=== PATIENT | female | born 1935 | race Caucasian/White ===

== ENCOUNTER 2020-07-16 11:38 | Emergency (ER) | payer MEDICARE, OTHER, SELFPAY ==
[2020-07-16 12:12] VITALS: BP 121/93; PULSE 86; RESP 18; TEMP 36.5; O2SAT 98
[2020-07-16 12:28] LABS: Basophils Absolute Auto 0.1 K/mm3 (0.0-0.1); Basophils Percent Auto 0.9 % (0.2-1.2); Eosinophils Absolute Auto 0.4 K/mm3 (0-0.3); Eosinophils Percent Auto 4.8 % (0-4.4); Hematocrit 35.4 % (37.0-47.0); Immature Granulocyte Absolute 0.02 K/mm3 (0.00-0.031); Immature Granulocyte Percent A 0.2 % (0-0.5); Lymphocytes Absolute Auto 2.06 K/mm3 (0.9-3.2); Lymphocytes Percent Auto 22.9 % (18.3-44.2); Mean Corpuscular HGB Conc 31.1 g/dl (32-36); Mean Corpuscular Hemoglobin 31.1 pg (26-34); Monocytes Absolute Auto 0.9 K/mm3 (0.1-0.6); Monocytes Percent Auto 9.7 % (2.6-8.5); Neutrophils Absolute Auto 5.5 K/mm3 (1.3-6.7); Neutrophils Percent Auto 61.5 % (45.5-73.1); Platelet Count Result 283 k/mm3 (150-375); Red Blood Count 3.54 M/mm3 (4.2-5.4); Red Cell Distribution Width 12.4 % (11.5-14.5)
[2020-07-16 12:40] LABS: Alanine Aminotransferase 13 U/L (4-35); Albumin Level 3.8 g/dL (3.5-5.1); Alkaline Phosphatase 68 U/L (38-126); Anion Gap 4 mmol/L (8-16); Aspartate Amino Transferase 21 U/L (14-36); Bilirubin,Total 0.4 mg/dL (0.2-1.3); Blood Urea Nitrogen 37 mg/dL (7-17); Calcium 8.8 mg/dL (8.4-10.2); Carbon Dioxide 28 mmol/L (22-30); Chloride 106 mmol/L (98-107); Estimated CRCL calculation 33 ml/min; Estimated Glomerular Filt Rate 43; Glucose 93 mg/dL (65-105); Potassium 5.5 mmol/L (3.4-5.0); Sodium 138 mmol/L (137-145)
[2020-07-16 12:48] LABS: Prothrombin Time 13.4 Seconds (11.1-14.7)
[2020-07-16 12:49] LABS: Partial Thromboplastin Time 26.9 SECONDS (22.3-36.8)
[2020-07-16 13:47] VITALS: BP 125/61; PULSE 84
[2020-07-16 13:49] VITALS: BP 117/57; PULSE 84
[2020-07-16 13:50] VITALS: BP 109/61; PULSE 80
[2020-07-16 14:59] VITALS: BP 125/65; PULSE 72; RESP 16; O2SAT 97
--- NOTE | 2020-07-16 15:06 | ED.GENADULT ---
HPI - General Adult General Chief complaint: GI Bleed Stated complaint: dark stools Time Seen by Provider: 07/16/20 13:15 Source: patient, family and old records reviewed Mode of arrival: ambulatory Limitations: no limitations History of Present Illness HPI narrative: Patient is an 84-year-old female who presents to emergency department for evaluation of dark stools 3 days ago patient was presenting with concern of possible GI bleeding patient has not taken anything for her symptoms patient denies similar occurrence in the past patient lives at home with herself and presents with family who helps care for the patient frequently patient denies nausea vomiting pain or other complaints and on arrival is resting comfortably in the room in no distress Related Data Allergies Allergy/AdvReac Type Severity Reaction Status Date / Time No Known Allergies Allergy Mild Verified 07/16/20 12:14 Review of Systems Review of Systems: All systems reviewed & are unremarkable except as noted in HPI and below PMFSH Social History Social History (Updated 07/16/20 @ 15:07 by Henrik Vega PA-C) Smoking status: Never smoker Exam Narrative: Exam Narrative: GENERAL: Well-appearing, well-nourished, and in no acute distress. HEAD: Normocephalic, atraumatic. EYES: PERRLA and EOMI. ENT: Nares clear, no rhinorrhea or epistaxis. Mucous membranes moist. CHEST: Clear to auscultation. No respiratory distress. No wheezes rales or rhonchi HEART: Regular rate and rhythm. No murmur heard. Normal peripheral pulses. ABDOMEN: Soft, nontender, nondistended, guaiac negative exam EXTREMITIES: Normal range of motion. No edema. SKIN: Warm, dry, no rash. NEURO: No focal deficits. Alert and oriented x3. Cranial nerves II through XII grossly intact PSYCH: Normal mood and affect. Course Course Emergency Course: Patient is an 84-year-old female who presents to emergency department for evaluation of dark stools patient has no pain no other complaints nontender abdominal exam hemodynamically stable ABCs intact and stable felt appropriate for outpatient reevaluation will be referred back to primary care as well as gastroenterology for further evaluation of her symptoms Vital Signs Vital signs: Vital Signs Temperature 97.7 F 07/16/20 12:12 Pulse Rate 86 07/16/20 12:12 Respiratory Rate 18 07/16/20 12:12 Blood Pressure 121/93 H 07/16/20 12:12 Pulse Oximetry 98 07/16/20 12:12 Temperature 97.7 F 07/16/20 12:12 Pulse Rate 72 07/16/20 14:59 Respiratory Rate 16 07/16/20 14:59 Blood Pressure 125/65 07/16/20 14:59 Pulse Oximetry 97 07/16/20 14:59 Medical Decision Making MDM Narrative Medical decision making narrative: Patient evaluated for dark stools and guaiac negative hemodynamically stable no distress felt appropriate for outpatient reevaluation patient and family agree with this plan Vital Signs Vital Signs: Vital Signs Temperature 97.7 F 07/16/20 12:12 Pulse Rate 86 07/16/20 12:12 Respiratory Rate 18 07/16/20 12:12 Blood Pressure 121/93 H 07/16/20 12:12 Pulse Oximetry 98 07/16/20 12:12 Temperature 97.7 F 07/16/20 12:12 Pulse Rate 72 07/16/20 14:59 Respiratory Rate 16 07/16/20 14:59 Blood Pressure 125/65 07/16/20 14:59 Pulse Oximetry 97 07/16/20 14:59 Lab Data Result diagrams: 07/16/20 12:16 07/16/20 12:16 Labs: Lab Results 07/16/20 07/16/20 07/16/20 Range/Units 12:16 12:16 12:16 WBC 9.0 (4.5-10.0) K/mm3 RBC 3.54 L (4.2-5.4) M/mm3 Hgb 11.0 L (12.0-15.0) g/dL Hct 35.4 L (37.0-47.0) % MCV 100.0 (80-100) fl MCH 31.1 (26-34) pg MCHC 31.1 L (32-36) g/dl RDW 12.4 (11.5-14.5) % Plt Count 283 (150-375) k/mm3 MPV 10.0 (7.4-10.4) fl Immature Gran % (Auto) 0.2 (0-0.5) % Neut % (Auto) 61.5 (45.5-73.1) % Lymph % (Auto) 22.9 (18.3-44.2) % Harmon % (Auto) 9.7 H (2.6-8.5) % Eos % (Auto) 4.
[2020-07-16 15:45] VITALS: BP 131/68; PULSE 77; RESP 16; O2SAT 100
== END 2020-07-16 15:47 | disposition home or self-care (01) ==
PROVIDERS: Emergency Provider Emergency Medicine; PCP Nurse Practitioner Adult Health
DX: R19.5 Other fecal abnormalities (principal)
CPT/HCPCS: 36415; 80053; 85025; 85610; 85730; 86850; 86900; 86901; 99283

== ENCOUNTER 2022-02-09 10:55 | Inpatient (IN) | payer MEDICARE, OTHER, SELFPAY ==
[2022-02-09] VITALS (24 sets, daily range): BP systolic 119–188; BP diastolic 47–170; PULSE 72–86; RESP 16–18; TEMP 36.4–37.1; O2SAT 80–100; BMI 31.8
--- NOTE | ~2022-02-09 | XR_ITS ---
EXAMINATION: XR tibia fibula RT 2V DATE: 02/09/2022 13:12 INDICATION: Right lower leg pain. TECHNIQUE: 2 views of right tibia and fibula on 3 radiographs were obtained. COMPARISON: Right knee radiographs 02/01/2017 FINDINGS: There is a total right knee arthroplasty in near-anatomic alignment. There are old healed f ractures of distal tibia and fibula with a screw in medial malleolus and plate and screws in the dist al fibula. There is a fracture deformity of right calcaneus. There is mild midfoot osteoarthritis. IMPRESSION: 1. Fracture deformity of right calcaneus, likely chronic. 2. Total right knee arthroplasty in near-anatomic alignment. Reviewed, dictated and finalized at location A.
--- NOTE | ~2022-02-09 | XR_ITS ---
EXAMINATION: XR foot RT min 3V DATE: 02/11/2022 10:07 INDICATION: Calcaneus fracture. TECHNIQUE: 4 views of right foot were obtained. COMPARISON: Right tibia and fibula radiographs 02/09/2022, right foot radiographs 10/29/2004 FINDINGS: There is a joint depression fracture deformity of calcaneus. There is internal fixation of medial malleolus with 2 lag screws. There is internal fixation of distal fibula with plate and multip le screws. There is moderate osteoarthritis of talonavicular joint and calcaneocuboid joint. There is mild osteoarthritis of some of the interphalangeal joints and midfoot joints. IMPRESSION: 1. Joint depression fracture deformity of calcaneus, likely chronic. 2. Polyarticular osteoarthritis. Reviewed, dictated and finalized at location A.
--- NOTE | ~2022-02-09 | CT_ITS ---
EXAMINATION:CT diagnostic chest wo con DATE: 02/11/2022 10:14 INDICATION: COVID-19 pneumonia. TECHNIQUE: Computed tomography (CT) of the chest was performed without intravenous contrast. Automate d exposure control and iterative reconstruction technique were employed. The dose-length product (DLP ) was 192.32 mGy-cm. COMPARISON: Chest single view 02/09/2022 FINDINGS: The lungs demonstrate widespread septal thickening with a peripheral predominance. There is mild bronchiectasis in right middle lobe. There are small airspace opacities in right upper lobe. Ca lcified right lung nodules and right hilar and mediastinal lymph nodes are consistent with old granul omatous disease. There are airspace and groundglass opacities in superior segment left lower lobe. No pleural effusion. There is left atrial enlargement of the heart. No pericardial effusion. Epidural e lectrodes are noted. IMPRESSION: 1. Airspace and groundglass opacities in superior segment left lower lobe, consistent with pneumonia. Follow-up radiographs are recommended to exclude malignancy. 2. Diffuse lung disease, likely chronic interstitial lung disease in a pattern of nonspecific interst itial pneumonia (NSIP). Reviewed, dictated and finalized at location A. IMPRESSION: 1. Airspace and groundglass opacities in superior segment left lower lobe, cons istent with pneumonia. Follow-up radiographs are recommended to exclude maligna ncy. 2. Diffuse lung disease, likely chronic interstitial lung disease in a pattern of nonspecific interstitial pneumonia (NSIP).
--- NOTE | ~2022-02-09 | CT_ITS ---
EXAMINATION: CT lumbar spine w con DATE: 02/09/2022 13:21 INDICATION: Back pain. TECHNIQUE: Computed tomography (CT) of the lumbar spine was performed with 100 mL Omnipaque 350 intra venous contrast. Automated exposure control and iterative reconstruction technique were employed. The dose-length product was 1085.42 mGy-cm. COMPARISON: None FINDINGS: There are changes of cholecystectomy. There is cortical thinning of left kidney. There is a 3.2 cm cyst in left ovary. There is 3 degrees levocurvature of lumbar spine. There is 3 mm anterolis thesis of L3 on L4 and L5 on S1. Vertebral body heights are normal. There is mildly decreased disc he ight at L2-L3 and L3-L4. There are epidural electrodes in thoracic spine. The following disc levels a re specifically discussed: L1-L2: The disc does not extend beyond the endplate margin. There is severe right and moderate left f acet joint osteoarthritis. There is mild bilateral neural foraminal stenosis. There is no central can al stenosis. L2-L3: The disc is bulging. There is severe bilateral facet joint osteoarthritis. There is moderate b ilateral neural foraminal stenosis. There is moderate central canal stenosis. L3-L4: The disc is bulging. There is severe bilateral facet joint osteoarthritis. There is moderate b ilateral neural foraminal stenosis. There is severe central canal stenosis. L4-L5: The disc is bulging. There is severe bilateral facet joint osteoarthritis. There is moderate b ilateral neural foraminal stenosis. There is moderate central canal stenosis. L5-S1: The disc is bulging. There is severe bilateral facet joint osteoarthritis. There is mild bilat eral neural foraminal stenosis. There is mild central canal stenosis. IMPRESSION: 1. Moderate lumbar spondylosis. 2. 3.2 cm cyst in left ovary, likely benign. Consider pelvis ultrasound in one year. Reviewed, dictated and finalized at location A.
--- NOTE | ~2022-02-09 | US_ITS ---
EXAMINATION: US venous doppler LE RT DATE: 02/09/2022 15:18 INDICATION: elevated ddimer . Right lower extremity pain and swelling. TECHNIQUE: Grayscale images without and with compression and Doppler images of the right lower extrem ity veins were obtained. COMPARISON: None FINDINGS: The right common femoral vein, profunda (deep) femoral vein, femoral vein, popliteal vein, peroneal v ein, posterior tibial veins, gastrocnemius vein, and greater saphenous vein are patent. IMPRESSION: 1. Patent right lower extremity veins. No evidence of deep venous thrombosis. Reviewed, dictated and finalized at location K.
--- NOTE | ~2022-02-09 | XR_ITS ---
EXAMINATION: XR tibia fibula RT 2V DATE: 02/11/2022 10:07 INDICATION: Right lower extremity fracture. TECHNIQUE: 2 views of right tibia and fibula on 3 radiographs were obtained. COMPARISON: Right tibia and fibula radiographs 02/09/2022 FINDINGS: There is a total right knee arthroplasty with patellar resurfacing in near-anatomic alignme nt. No periprosthetic lucency to suggest loosening or infection. There is internal fixation of medial malleolus with 2 lag screws. There is internal fixation of distal fibula with lateral plate and scre ws. There is an old fracture deformity of calcaneus. There is moderate midfoot osteoarthritis. There are enthesophytes at the posterior and plantar aspects of calcaneal tuberosity. IMPRESSION: 1. Total right knee arthroplasty in near-anatomic alignment. 2. Moderate midfoot osteoarthritis. Reviewed, dictated and finalized at location A.
--- NOTE | ~2022-02-09 | CT_ITS ---
EXAMINATION: CT brain wo con DATE: 02/09/2022 13:21 INDICATION: Frequent falls. Covid positive. TECHNIQUE: Computed tomography (CT) of the head was performed without intravenous contrast. The dose- length product was 529.67 mGy-cm. Automated exposure control and iterative reconstruction technique w ere employed. COMPARISON: None FINDINGS: Generalized atrophy. There are scattered mild periventricular and subcortical white matter changes, most likely related to small vessel ischemic disease (microangiopathy). There is intracrania l atherosclerosis. No acute intracranial hemorrhage, infarction, mass or mass effect. There is mild v entriculomegaly which may relate to compensatory dilation or normal pressure hydrocephalus. IMPRESSION: 1. No acute intracranial abnormality. 2: Mild ventriculomegaly which may relate to volume loss or normal pressure hydrocephalus. 3: Chronic age-related findings. Reviewed, dictated and finalized at location A. IMPRESSION: 1. No acute intracranial abnormality. 2: Mild ventriculomegaly which may relate to volume loss or normal pressure hyd rocephalus. 3: Chronic age-related findings.
--- NOTE | ~2022-02-09 | XR_ITS ---
EXAMINATION: XR chest 1V portable DATE: 02/09/2022 13:12 INDICATION: Weakness. TECHNIQUE: A single frontal view of the chest was obtained. COMPARISON: Chest single view 05/31/2004 FINDINGS: There is a diffuse interstitial pattern in the lungs. There are airspace opacities in left midlung zone. No pleural effusion or pneumothorax. Cardiomegaly is noted. Electrodes overlie thoracic spine. IMPRESSION: 1. Diffuse lung disease, consistent with pulmonary edema versus pneumonia. 2. Cardiomegaly. Reviewed, dictated and finalized at location A.
--- NOTE | 2022-02-09 12:08 | ED.FALL ---
HPI - Fall General Chief Complaint: Fall Stated Complaint: mult falls, R sided weakness, recent admission Time Seen by Provider: 02/09/22 10:58 History of Present Illness HPI Narrative: pt here with chronic right leg pain from knee to ankle was [facility] first week january r/o dvt with doppler and had outpt films ankle neg and ? cellulitis on gabepentin and flexeril and abx-finished this bu tstill pain and episodes of falling multiple times since yesterday just eases down to ground no injuries no isolated weakness walking with walker and no loc/neuro chagnes just legs give out no incontinence and awaiting mri in [place] b/c only place that can deactivate her stimulator for back pain to get it done ordered per pain management doc whom she saw yesterday for this chronic ongoing issue Related Data Allergies Allergy/AdvReac Type Severity Reaction Status Date / Time No Known Allergies Allergy Mild Verified 07/16/20 12:14 Review of Systems Constitutional: Comments: CONSTITUTIONAL: Denies fever, chills, or sweats. EYES: Denies visual changes, redness, or discharge. ENT: Denies rhinorrhea, congestion, sore throat, or otalgia. CARDIOVASCULAR: Denies chest pain, palpitations, or edema. RESPIRATORY: Denies cough or dyspnea. GASTROINTESTINAL: Denies abdominal pain, nausea, vomiting, or diarrhea. GENITOURINARY: Denies dysuria or hematuria. SKIN: Denies rash or itching. MUSCULOSKELETAL: Denies back pain, joint pain, or myalgia. has right leg pain knee ot ankle no swelling NEUROLOGIC: Denies headache, numbness, has weakness. many falls PSYCHIATRIC: Denies anxiety or depression. [facility] Social History Social History (Updated 07/16/20 @ 15:07 by Henrik Vega, PAFarhanC) Smoking status: Never smoker Exam Const: Other: APPEARANCE: Well appearing, no pain in distress, well-nourished. Head normocephalic atraumtaic. EYES: PERRLA/EOMI, conjunctivae very clear. NOSE: Normal no drainage EARS:TMS clear Conor Rai, with good light reflex. THROAT: Pharynx clear, no exudate. NECK: Supple. No adenopathy, no masses. RESPIRATORY: Airway patent, repsirations nonlabored. Clear to auscultation bilaterally, no rales, rhonchi, wheezing. CARDIOVASCULAR: Regular rate and rhythm without murmurs rubs or gallops. ABDOMINAL: Soft, nontender, nondistended, no hepatosplenomegally MUSCULOSKELETAl: Moves all extremities. Strenght/ROM intact, No edema, No calf tenderness. NEURO: Alert. Cranial nerves II through XII intact. no saddle paresthesias but pain with moving rigth leg and st leg positive no focal deficits SKIN:: Warm, dry. Normal Color PSYCHIATRIC: Normal affect/mood, normal interaction with parents. Course Reevaluation(s) Reevaluation #1: updated pt and good with admission and also hospitalist [employer] aware of admission at 1420 Vital Signs Vital signs: Vital Signs Temperature 36.4 C 02/09/22 11:01 Pulse Rate 82 02/09/22 11:01 Respiratory Rate 16 02/09/22 11:01 Blood Pressure 163/109 H 02/09/22 11:01 Pulse Oximetry 100 02/09/22 11:01 Temperature 36.4 C 02/09/22 11:01 Pulse Rate 82 02/09/22 14:00 Respiratory Rate 17 02/09/22 14:00 Blood Pressure 160/75 H 02/09/22 13:02 Pulse Oximetry 95 02/09/22 13:45 MDM - Fall Lab Data Result diagrams: 02/09/22 12:26 02/09/22 12:26 Labs: Lab Results 02/09/22 02/09/22 02/09/22 Range/Units 12:01 12:24 12:26 WBC 7.2 (4.5-10.0) K/mm3 RBC 4.06 L (4.2-5.4) M/mm3 Hgb 12.3 (12.0-15.0) g/dL Hct 40.1 (37.0-47.0) % MCV 98.8 (80-100) fl MCH 30.3 (26-34) pg MCHC 30.7 L (32-36) g/dl RDW 13.2 (11.5-14.5) % Plt Count 241 (150-375) k/mm3 MPV 10.6 H (7.4-10.4) fl Immature Gran % (Auto) 0.4 (0-0.5) % Neut % (Auto) 58.6 (45.5-73.1) % Lymph % (Auto) 21.6 (18.3-44.2) % Adams % (Auto) 10.5 H (2.6-8.5) % Eos % (Auto) 7.8 H (0-4.4) % Baso % (Auto) 1.1 (0.2-1.2) % Lymph # (Auto)
--- NOTE | 2022-02-09 12:09 | ECG_ITS ---
Measurements Intervals Rankin Rate: 0 P: MN: 0 QRS: QRSD: 0 T: QT: 0 QTc: 0 Interpretive Statements NORMAL SINUS RHYTHM WITH APCS NO PREVIOUS ECG AVAILABLE FOR COMPARISON Electronically Signed On 02-09-2022 18:36:06 CDT by Debra Ferrari M.D.
[2022-02-09 12:40] LABS: Alveolar/Arterial O2 Gradient 31.6 mmHg; Base Excess ABG -1.1 mEq/l (+/-2.0); Fractional Inspired Oxygen 21 %; HCO3 ABG 24.8 mEq/l (22.0-26.0); Oxygen Content ABG 16.6 %vol (16.0-22.0); Oxygen Saturation ABG 90.9 % (95.0-100.0); Oxyhemoglobin 91.3 % THb (90.0-100.0); Total Hemoglobin 12.9 g/dL (12.0-18.0); pH ABG 7.349 (7.350-7.450)
[2022-02-09 12:41] LABS: Device ROOM AIR; Modified Allen's Test Pass; Site Drawn RIGHT RADIAL
[2022-02-09 12:42] LABS: Basophils Absolute Auto 0.1 K/mm3 (0.0-0.1); Basophils Percent Auto 1.1 % (0.2-1.2); Eosinophils Absolute Auto 0.6 K/mm3 (0-0.3); Eosinophils Percent Auto 7.8 % (0-4.4); Hematocrit 40.1 % (37.0-47.0); Hemoglobin 12.3 g/dL (12.0-15.0); Immature Granulocyte Absolute 0.03 K/mm3 (0.00-0.031); Immature Granulocyte Percent A 0.4 % (0-0.5); Lymphocytes Absolute Auto 1.56 K/mm3 (0.9-3.2); Lymphocytes Percent Auto 21.6 % (18.3-44.2); Mean Corpuscular HGB Conc 30.7 g/dl (32-36); Mean Corpuscular Hemoglobin 30.3 pg (26-34); Mean Corpuscular Volume 98.8 fl (80-100); Mean Platelet Volume 10.6 fl (7.4-10.4); Monocytes Absolute Auto 0.8 K/mm3 (0.1-0.6); Monocytes Percent Auto 10.5 % (2.6-8.5); Neutrophils Absolute Auto 4.2 K/mm3 (1.3-6.7); Neutrophils Percent Auto 58.6 % (45.5-73.1); Platelet Count Result 241 k/mm3 (150-375); Red Blood Count 4.06 M/mm3 (4.2-5.4); Red Cell Distribution Width 13.2 % (11.5-14.5); White Blood Count 7.2 K/mm3 (4.5-10.0)
[2022-02-09 12:48] LABS: SARS-CoV-2 RNA PCR Positive
[2022-02-09 12:57] LABS: Prothrombin Time 13.1 Seconds (11.1-14.7)
[2022-02-09] MEDS: diazePAM INJ (*CRX) 10 MG/2 ML SYRINGE 2.5 MG IV PUSH (12:57)
[2022-02-09] MEDS: fentaNYL CITRATE INJ (*CRX) 100 MCG/2 ML VIAL 50 MCG IV PUSH (12:57)
[2022-02-09] MEDS: ONDANSETRON INJ 4 MG/2 ML VIAL IV PUSH (12:57)
[2022-02-09 12:58] LABS: Alanine Aminotransferase 23 U/L (6-35); Albumin Level 3.7 g/dL (3.5-5.1); Alkaline Phosphatase 62 U/L (38-126); Anion Gap 6 mmol/L (8-16); Aspartate Amino Transferase 21 U/L (14-36); Bilirubin,Total 0.5 mg/dL (0.2-1.3); Blood Urea Nitrogen 18 mg/dL (7-17); Calcium 9.3 mg/dL (8.4-10.2); Carbon Dioxide 27 mmol/L (22-30); Chloride 104 mmol/L (98-107); Creatine Kinase 50 U/L (30-135); Estimated CRCL calculation 37 ml/min; Estimated Glomerular Filt Rate 52; Glucose 90 mg/dL (65-110); Magnesium 1.9 mg/dL (1.6-2.3); Partial Thromboplastin Time 27.9 SECONDS (22.3-36.8); Potassium 4.4 mmol/L (3.4-5.0); Sodium 137 mmol/L (137-145)
[2022-02-09 13:10] LABS: NT Pro B Type Natriuretic Pept 298 pg/mL (5-100); Troponin I < 0.012 ng/mL (0.000-0.034)
[2022-02-09 13:13] LABS: D Dimer 0.94 ug/mL (<0.48)
[2022-02-09 14:01] LABS: D Dimer 0.91 ug/mL (<0.48)
[2022-02-09 14:05] LABS: Appearance Urine Clear (Clear); Bilirubin Urine Negative (Negative); Blood Urine Negative (Negative); Color Urine Yellow (Yellow); Glucose Urine UA Negative (Negative); Ketones Urine Negative (Negative); Leukocyte Esterase Ur Negative LEU/UL (Negative); Nitrate Urine Negative (Negative); Protein Urine Negative (Negative); Urobilinogen Urine 0.2 mg/dL (<2.0); pH Urine 5.5 (5.0-9.0)
[2022-02-09 14:12] LABS: Add Urine Microscopic? NO
[2022-02-09] MEDS: DEXAMETHASONE SOD PHOS INJ 4 MG/ML VIAL IV PUSH (14:29)
[2022-02-09] MEDS: ENOXAPARIN 100 MG/ML SYRINGE 88 MG SUB-Q (14:29)
--- NOTE | 2022-02-09 14:40 | PM.IMHP ---
H&P: HPI History of Present Illness Date/Time: 02/09/22 14:40 Chief Complaint: Weakness with fall Narrative: This is an 86-year-old female patient who has a history of having chronic lower back pain. The patient has a implanted stimulator to her back. The patient has been having severe pain to her right lower extremity from her knee to her ankle that started approximately 1 week ago. She went to [facility] she was admitted there approximately a week ago and she had x-rays and ultrasounds that were negative. The patient was started on gabapentin, Flexeril and antibiotics. She completed all of those and still is complaining of pain to the lower extremity. The patient stated that she was having multiple falls since yesterday she just sees is down to the ground without any injuries. She had no incontinence of bowel or bladder at that time. The patient was not able to get at MRI of her back due to the stimulator in her neural stimulator in her back. D-dimer was noted to be 0.94. On ABGs her pH was 7.349 with a CO2 of 46.0 patient is on room air. Patient was found to be positive for COVID. Venous Doppler on the right was read as pain right lower extremity veins no evidence of deep vein thrombosis. Lumbar spine CT was read as the following 1. Moderate lumbar spondylosis. 2. 3.2 cm cyst in left ovary, likely benign. Consider pelvis ultrasound in one year. Head CT was read as the following1. No acute intracranial abnormality. 2: Mild ventriculomegaly which may relate to volume loss or normal pressure hydrocephalus. 3:? Chronic age-related findings. The patient was given fentanyl, Zofran, Valium, and Decadron in the emergency room. The patient is being admitted to inpatient services on the date of service of 02/09/2022. Review of Systems Review of Systems: See history of present illness All systems reviewed & are unremarkable except as noted in HPI and below Constitutional: Constitutional: Reports as per HPI and Reports no additional constitutional complaints Eyes: Eyes: Reports as per HPI and Reports no additional eye complaints ENT: Reports system reviewed and no additional complaints, except as documented and Reports Normal hearing present Cardiovascular: Cardiovascular: Reports no additional cardiovascular complaints Respiratory: Respiratory: Reports no additional respiratory complaints and Reports no additional respiratory complaints Gastrointestinal: Gastrointestinal: Reports as per HPI and Reports no additional gastrointestinal complaints Musculoskeletal: Musculoskeletal: Reports no additional musculoskeletal complaints Integumentary/Breasts: Skin/Breast: Reports system reviewed and no additional complaints, except as docu and Reports as per HPI Neurologic: Reports system reviewed and no additional complaints, except as documented, Reports as per HPI and Reports Normal hearing present Psychiatric: Psychiatric: Reports no additional psychiatric complaints and Reports as per HPI Endocrine: Endocrine: Reports no additional endocrine complaints Hematologic/Lymphatic: Hematologic/Lymphatic: Reports no additional hematologic/lymphatic complaints Allergic/Immunologic: Allergic/Immunologic: Reports no additional allergic/immunologic complaints [facility] Surgical History Surgical History (Updated 02/09/22 @ 14:49 by Casandra Goldstein NP) H/O: hysterectomy History of appendectomy History of knee replacement, total Hx of cholecystectomy S/P ORIF (open reduction internal fixation) fracture both feet Status post ORIF of fracture of ankle Family History Family History Father Heart disease Sibling Heart disease Social History Social History (Updated 02/09/22 @ 16:14 by Casandra Goldstein NP) Social History: The patient's son lives with her. She has 5 children. She is and her son Torito Ramos is her durable power civil attorney. She is retired from working in a d
--- NOTE | 2022-02-09 15:55 | ADMGEN ---
This patient, Rossy Ramos, was admitted to 3 [facility] Surg Room 304-01. Patient/family oriented to hospital policies and general routines including ID bracelet, bed and alarms, visiting hours, pain management, procedures, bathroom and other care routines, personal items, smoking policy, room service/diet, and visiting hours. Information on how to activate the Rapid Response Team has been discussed. Patient/Family are encouraged to report perceived risks to care and to ask questions if they do not understand what they are told or what they should do.
[2022-02-09 22:11] LABS: Hemoglobin A1C 5.1 % (<5.7)
[2022-02-10] VITALS (9 sets, daily range): BP systolic 107–138; BP diastolic 54–91; PULSE 66–80; RESP 14–20; TEMP 35.7–37.1; O2SAT 96–100
[2022-02-10] MEDS: fentaNYL CITRATE INJ (*CRX) 100 MCG/2 ML VIAL 25 MCG IV PUSH ×3 (02:07→16:42)
[2022-02-10] MEDS: VALSARTAN 160 MG TABLET 320 MG PO (08:27)
[2022-02-10] MEDS: ASPIRIN 325 MG ENTERIC TABLET BY MOUTH (08:27)
[2022-02-10] MEDS: GABAPENTIN 300 MG CAPSULE BY MOUTH ×2 (08:27→16:42)
[2022-02-10] MEDS: COLCHICINE 0.6 MG TABLET PO ×2 (08:27→16:42)
[2022-02-10] MEDS: ROSUVASTATIN 10 MG TABLET 20 MG PO (08:27)
[2022-02-10] MEDS: ENOXAPARIN 40 MG/0.4 ML SYRINGE SUB-Q (08:28)
[2022-02-10 08:29] LABS: Basophils Absolute Auto 0.1 K/mm3 (0.0-0.1); Basophils Percent Auto 0.6 % (0.2-1.2); Eosinophils Absolute Auto 0.1 K/mm3 (0-0.3); Eosinophils Percent Auto 1.2 % (0-4.4); Hematocrit 39.5 % (37.0-47.0); Hemoglobin 12.3 g/dL (12.0-15.0); Immature Granulocyte Absolute 0.03 K/mm3 (0.00-0.031); Immature Granulocyte Percent A 0.4 % (0-0.5); Lymphocytes Percent Auto 19.4 % (18.3-44.2); Mean Corpuscular HGB Conc 31.1 g/dl (32-36); Mean Corpuscular Hemoglobin 30.9 pg (26-34); Mean Corpuscular Volume 99.2 fl (80-100); Mean Platelet Volume 10.5 fl (7.4-10.4); Monocytes Absolute Auto 0.7 K/mm3 (0.1-0.6); Neutrophils Absolute Auto 5.8 K/mm3 (1.3-6.7); Neutrophils Percent Auto 70.4 % (45.5-73.1); Platelet Count Result 244 k/mm3 (150-375); Red Blood Count 3.98 M/mm3 (4.2-5.4); White Blood Count 8.3 K/mm3 (4.5-10.0)
[2022-02-10 08:35] LABS: Alanine Aminotransferase 22 U/L (6-35); Albumin Level 3.7 g/dL (3.5-5.1); Alkaline Phosphatase 72 U/L (38-126); Anion Gap 7 mmol/L (8-16); Aspartate Amino Transferase 18 U/L (14-36); Bilirubin,Total 0.5 mg/dL (0.2-1.3); Blood Urea Nitrogen 17 mg/dL (7-17); Calcium 9.3 mg/dL (8.4-10.2); Carbon Dioxide 28 mmol/L (22-30); Chloride 102 mmol/L (98-107); Estimated CRCL calculation 35 ml/min; Estimated Glomerular Filt Rate 52; Glucose 101 mg/dL (65-110); Lactate Dehydrogenase 129 U/L (120-246); Potassium 4.2 mmol/L (3.4-5.0); Sodium 137 mmol/L (137-145)
[2022-02-10 09:48] LABS: Thyroid Stimulating Hormone Reflex 0.628 uIU/mL (0.465-4.68)
--- NOTE | 2022-02-10 12:42 | PCOTNOTE ---
Attempted OT evaluation, RN planning to check with hospitalist about need of a ortho consult. Will follow.
--- NOTE | 2022-02-10 16:03 | PM.IMPN ---
Progress Note: A&P Assessment and Plan (1) Chronic pain of right lower extremity: Code(s): M79.604 - Pain in right leg; G89.29 - Other chronic pain Status: Acute (2) Degenerative disc disease, lumbar: Code(s): M51.36 - Other intervertebral disc degeneration, lumbar region Status: Acute (3) Frequent falls: Code(s): R29.6 - Repeated falls Status: Acute (4) Pneumonia due to COVID-19 virus: Code(s): U07.1 - COVID-19; J12.82 - Pneumonia due to coronavirus disease 2019 Status: Acute (5) Elevated d-dimer: Code(s): R79.89 - Other specified abnormal findings of blood chemistry Status: Acute Plan 02/09/22 -the patient was started on Dilaudid -analgesics -PT and OT -refer to outpatient pain management. -started on steroid -venous Dopplers were negative. -unable to do MRI of the back due to her neurostimulator -see the results of her CT scan mentioned above.? The patient does have degenerative disc disease. -may consider pain pump -conservative management.? Symptomatic relief -she was started on Decadron already -she is not on oxygen. -contact and droplet isolation -patient was negative for a DVT. -could be related to COVID. 02/10/[address] pt comfortable on RA CT chest anticipate dc home tomorrow management at or to be guided by CT chest cont supportive care dc tele Subjective Date/time seen: 02/10/22 16:03 pt doing ok on RA asking to go home. lives w second oldest son. has good social support Review of Systems Review of Systems: All systems reviewed & are unremarkable except as noted in HPI and below Exam Narrative: GEN: NAD, AAOx3, cooperative HEENT: NCAT, MMM, EOMI Neck: no JVD Heart: S1S2 RRR Lungs: CTA B/l Abd: soft, NT, ND, bowel sounds normoactive Ext: moves all, no cyanosis, no clubbing, no edema, TTP on lateral aspect of RLE no erythema or skin changes noted Neuro: normal cognition, CN intact no focal deficits appreciated Psych: mood and affect congruent Objective Data Vital Signs Vital Signs: Vital Signs - 24 hr 02/09/22 19:17 02/09/22 19:40 02/09/22 20:00 Temperature 98.1 F Pulse Rate 80 Respiratory Rate 17 Blood Pressure 124/54 L Pulse Oximetry 100 99 Oxygen Delivery Room Air Room Air 02/09/22 23:41 02/10/22 00:00 02/09/22 20:00 Temperature 98.7 F Pulse Rate 72 71 86 Respiratory Rate 18 Blood Pressure 119/59 L Pulse Oximetry 98 Oxygen Delivery 02/10/22 03:48 02/10/22 04:00 02/10/22 08:00 Temperature 98.0 F 96.2 F L Pulse Rate 71 66 69 Respiratory Rate 18 16 Blood Pressure 125/59 L 111/91 H Pulse Oximetry 100 100 Oxygen Delivery 02/10/22 08:00 02/10/22 12:00 02/10/22 08:00 Temperature 96.5 F L Pulse Rate 80 71 Respiratory Rate 20 Blood Pressure 125/68 Pulse Oximetry 99 Oxygen Delivery Room Air 02/10/22 12:00 Temperature Pulse Rate 77 Respiratory Rate Blood Pressure Pulse Oximetry Oxygen Delivery Intake/Output Intake/Output: Intake & Output 02/07/22 02/08/22 02/09/22 02/10/22 23:59 23:59 23:59 23:59 Intake Total 1060 Output Total 1300 Balance -240 Meds/Results Medications: Active Medications Generic Name Dose Route Start Last Admin Trade Name Ta PRN Reason Stop Dose Admin Albuterol 2 puff 02/09/22 16:30 Albuterol Sulfate (*Sp) Aerosol 1 Puff INHALATION Q6HRT PRN Shortness Of Breath Aspirin 325 mg 02/10/22 09:00 02/10/22 08:27 Aspirin 325 Mg Enteric Tablet BY MOUTH 03/12/22 08:59 325 mg DAILY SHANE Administration Colchicine 0.6 mg 02/10/22 09:00 02/10/22 08:27 Colchicine 0.6 Mg Tablet PO 0.6 mg BID SHANE Administration Dexamethasone Sodium Phosphate 6 mg 02/10/22 09:00 02/10/22 08:28 Dexamethasone Sod Phos Inj 10 Mg/Ml 1 Ml Vial IV PUSH 02/19/22 09:01 6 mg DAILY SHANE Administration Enoxaparin Sodium 40 mg 02/10/22 09:00 02/10/22 08:28 Enoxaparin 40 Mg/0.4 Ml Syr
[2022-02-11] VITALS (8 sets, daily range): BP systolic 102–154; BP diastolic 53–76; PULSE 63–84; RESP 18–20; TEMP 35.8–37; O2SAT 91–100
[2022-02-11 06:21] LABS: Basophils Percent Auto 0.4 % (0.2-1.2); Eosinophils Absolute Auto 0.2 K/mm3 (0-0.3); Eosinophils Percent Auto 1.4 % (0-4.4); Hematocrit 38.9 % (37.0-47.0); Hemoglobin 12.1 g/dL (12.0-15.0); Immature Granulocyte Absolute 0.05 K/mm3 (0.00-0.031); Immature Granulocyte Percent A 0.5 % (0-0.5); Lymphocytes Absolute Auto 1.73 K/mm3 (0.9-3.2); Lymphocytes Percent Auto 16.5 % (18.3-44.2); Mean Corpuscular HGB Conc 31.1 g/dl (32-36); Mean Corpuscular Hemoglobin 30.6 pg (26-34); Mean Corpuscular Volume 98.5 fl (80-100); Monocytes Absolute Auto 0.9 K/mm3 (0.1-0.6); Monocytes Percent Auto 8.7 % (2.6-8.5); Neutrophils Absolute Auto 7.6 K/mm3 (1.3-6.7); Neutrophils Percent Auto 72.5 % (45.5-73.1); Platelet Count Result 254 k/mm3 (150-375); Red Blood Count 3.95 M/mm3 (4.2-5.4); White Blood Count 10.5 K/mm3 (4.5-10.0)
[2022-02-11 06:34] LABS: Anion Gap 8 mmol/L (8-16); Blood Urea Nitrogen 27 mg/dL (7-17); CRP 0.7 mg/dL (<1.0); Calcium 9.3 mg/dL (8.4-10.2); Carbon Dioxide 27 mmol/L (22-30); Chloride 103 mmol/L (98-107); Estimated CRCL calculation 39 ml/min; Estimated Glomerular Filt Rate 59; Glucose 105 mg/dL (65-110); Potassium 4.3 mmol/L (3.4-5.0); Sodium 138 mmol/L (137-145)
[2022-02-11 06:37] LABS: D Dimer 0.65 ug/mL (<0.48)
--- NOTE | 2022-02-11 08:56 | PCPTNOTE ---
Attempted physical therapy initial evaluation, per communication order, need to wait until new X-ray has been read. Will continue to follow.
[2022-02-11] MEDS: ASPIRIN 325 MG ENTERIC TABLET BY MOUTH (09:22)
[2022-02-11] MEDS: COLCHICINE 0.6 MG TABLET PO ×2 (09:22→17:59)
[2022-02-11] MEDS: ENOXAPARIN 40 MG/0.4 ML SYRINGE SUB-Q (09:23)
[2022-02-11] MEDS: ROSUVASTATIN 10 MG TABLET 20 MG PO (09:23)
[2022-02-11] MEDS: GABAPENTIN 300 MG CAPSULE BY MOUTH ×2 (09:23→17:59)
[2022-02-11] MEDS: VALSARTAN 160 MG TABLET 320 MG PO (09:23)
--- NOTE | 2022-02-11 16:50 | PM.IMPN ---
Progress Note: A&P Assessment and Plan (1) Chronic pain of right lower extremity: Code(s): M79.604 - Pain in right leg; G89.29 - Other chronic pain Status: Acute (2) Degenerative disc disease, lumbar: Code(s): M51.36 - Other intervertebral disc degeneration, lumbar region Status: Acute (3) Frequent falls: Code(s): R29.6 - Repeated falls Status: Acute (4) Pneumonia due to COVID-19 virus: Code(s): U07.1 - COVID-19; J12.82 - Pneumonia due to coronavirus disease 2019 Status: Acute (5) Elevated d-dimer: Code(s): R79.89 - Other specified abnormal findings of blood chemistry Status: Acute Plan 02/09/22 -the patient was started on Dilaudid -analgesics -PT and OT -refer to outpatient pain management. -started on steroid -venous Dopplers were negative. -unable to do MRI of the back due to her neurostimulator -see the results of her CT scan mentioned above.? The patient does have degenerative disc disease. -may consider pain pump -conservative management.? Symptomatic relief -she was started on Decadron already -she is not on oxygen. -contact and droplet isolation -patient was negative for a DVT. -could be related to COVID. 02/10/[address] pt [address] on RA [address] chest anticipate dc home tomorrow management at dc to be guided by CT chest cont supportive care dc tele 02/11/22 XR LE w chronic changes pt remains full weight bearing as tolerated to follow up outpt w Ortho after resolution of COVID Ct chest w COIVD PNA pt on RA cont dexamethasone would benefit from paxlovid at dc cont current care anticipate dc home tomorrow after I am able to speak with her 2 sons (POA and the son she resides with) Subjective Date/time seen: 02/11/22 16:50 pt ok wants to go home on RA CT ordered to help evaluate dc medication plan Review of Systems Review of Systems: All systems reviewed & are unremarkable except as noted in HPI and below Exam Narrative: GEN: NAD, AAOx3, cooperative HEENT: NCAT, MMM, EOMI Neck: no JVD Heart: S1S2 RRR Lungs: CTA B/l Abd: soft, NT, ND, bowel sounds normoactive Ext: moves all, no cyanosis, no clubbing, no edema, TTP on lateral aspect of RLE no erythema or skin changes noted Neuro: normal cognition, CN intact no focal deficits appreciated Psych: mood and affect congruent Objective Data Vital Signs Vital Signs: Vital Signs - 24 hr 02/10/22 19:46 02/10/22 20:00 02/10/22 23:31 Temperature 98.7 F 98.8 F Pulse Rate 75 75 73 Respiratory Rate 18 18 18 Blood Pressure 110/58 L 138/79 Pulse Oximetry 98 98 97 Oxygen Delivery Room Air 02/11/22 03:47 02/11/22 08:00 02/11/22 08:32 Temperature 98.6 F 96.5 F L Pulse Rate 63 64 Respiratory Rate 18 20 Blood Pressure 154/71 H 148/69 H Pulse Oximetry 95 99 98 Oxygen Delivery Room Air 02/11/22 09:20 02/11/22 12:00 02/11/22 16:00 Temperature 97.6 F 97.0 F L Pulse Rate 80 73 Respiratory Rate 20 20 Blood Pressure 122/53 L 128/76 Pulse Oximetry 100 97 91 Oxygen Delivery Room Air Intake/Output Intake/Output: Intake & Output 02/08/22 02/09/22 02/10/22 02/11/22 23:59 23:59 23:59 23:59 Intake Total 1850 1090 Output Total 1300 1900 Balance 550 -810 Meds/Results Medications: Active Medications Generic Name Dose Route Start Last Admin Trade Name Freq PRN Reason Stop Dose Admin Albuterol 2 puff 02/09/22 16:30 Albuterol Sulfate (*Sp) Aerosol 1 Puff INHALATION Q6HRT PRN Shortness Of Breath Aspirin 325 mg 02/10/22 09:00 02/11/22 09:22 Aspirin 325 Mg Enteric Tablet BY MOUTH 03/12/22 08:59 325 mg DAILY SHANE Administration Colchicine 0.6 mg 02/10/22 09:00 02/11/22 09:22 Colchicine 0.6 Mg Tablet PO 0.6 mg BID SHANE Administration Dexamethasone Sodium Phosphate 6 mg 02/10/22 09:00 02/11/22 09:22 Dexamethasone Sod Phos Inj 10 Mg/Ml 1 Ml Vial IV PUSH 02/19/22 09:01 6 mg DAILY SHANE Administration Enox
[2022-02-12 04:00] VITALS: BP 121/67; PULSE 69; RESP 18; TEMP 36; O2SAT 98
[2022-02-12 08:00] VITALS: BP 138/62; PULSE 71; RESP 20; TEMP 35.9; O2SAT 100
[2022-02-12] MEDS: VALSARTAN 160 MG TABLET 320 MG PO (08:01)
[2022-02-12] MEDS: ENOXAPARIN 40 MG/0.4 ML SYRINGE SUB-Q (08:02)
[2022-02-12] MEDS: ROSUVASTATIN 10 MG TABLET 20 MG PO (08:02)
[2022-02-12] MEDS: COLCHICINE 0.6 MG TABLET PO (08:02)
[2022-02-12] MEDS: ASPIRIN 325 MG ENTERIC TABLET BY MOUTH (08:02)
[2022-02-12] MEDS: GABAPENTIN 300 MG CAPSULE BY MOUTH (08:02)
[2022-02-12 12:00] VITALS: BP 120/66; PULSE 90; RESP 20; TEMP 36.2; O2SAT 95
--- NOTE | 2022-02-12 15:10 | PM.DS ---
DS: Admitting Diagnosis Discharge Date 02/12/22 Admitting Diagnosis (1) Chronic pain of right lower extremity: ? ? ? (2) Degenerative disc disease, lumbar: ? (3) Frequent falls: (4) Pneumonia due to COVID-19 virus: (5) Elevated d-dimer: DS: Discharge Diagnosis Discharge Diagnosis (1) Chronic pain of right lower extremity: Code(s): M79.604 - Pain in right leg; G89.29 - Other chronic pain Status: Acute (2) Degenerative disc disease, lumbar: Code(s): M51.36 - Other intervertebral disc degeneration, lumbar region Status: Acute (3) Frequent falls: Code(s): R29.6 - Repeated falls Status: Acute (4) Pneumonia due to COVID-19 virus: Code(s): U07.1 - COVID-19; J12.82 - Pneumonia due to coronavirus disease 2019 Status: Acute (5) Elevated d-dimer: Code(s): R79.89 - Other specified abnormal findings of blood chemistry Status: Acute (6) Normal pressure hydrocephalus: Code(s): G91.2 - (Idiopathic) normal pressure hydrocephalus Status: Acute (7) Advanced age: Code(s): R54 - Age-related physical debility Status: Acute (8) Very poor mobility: Code(s): Z74.09 - Other reduced mobility Status: Acute DS: Summary Hospital Course Reason for hospitalization: falls Hospital Course: 02/09/22 -the patient was started on Dilaudid -analgesics -PT and OT -refer to outpatient pain management. -started on steroid -venous Dopplers were negative. -unable to do MRI of the back due to her neurostimulator -see the results of her CT scan mentioned above.? The patient does have degenerative disc disease. -may consider pain pump -conservative management.? Symptomatic relief -she was started on Decadron already -she is not on oxygen. -contact and droplet isolation -patient was negative for a DVT. -could be related to COVID. 02/10/[address] RA [address] chest? anticipate dc home tomorrow? management at dc to be guided by CT chest? cont supportive care? dc tele? 02/11/22 XR LE w chronic changes pt remains full weight bearing as tolerated? to follow up outpt w Ortho after resolution of COVID? Ct chest w COIVD PNA? pt on RA? cont dexamethasone would benefit from paxlovid at dc? cont current care? anticipate dc home tomorrow after I am able to speak with her 2 sons (MONIQUE and the son she resides with) 02/12/22 86yo F under the care of pain management for chronic back and RLE pain presented to hospital w recurrent falls and complaint of weakness. She is found to have COVID PNA stable on RA during hospitalization. She was treated w Dexamethasone inpt and at time of discharge she is transitioned to Paxlovid to prevent progression of pulmonary infection in light of her advanced age, use of colchicine, and poorly mobile status. Discharge instructions are given to stop Colchicine while on plaxlovid and resume medication when COVID tx is completed in 6 days. Pt is to follow up pain management this Monday with disc of XRAYs taken of RLE for ongoing care in outpt setting. Pt is discharged home in stable condition on RA w [facility]. Status at Discharge Functional status at discharge: uses cane/walker Overall status at discharge: patient is progressing back to baseline Time Spent with Patient Time attestation: Total time spent providing and/or coordinating discharge services: Time spent: Greater than 30 minutes Exam Narrative: GEN: NAD, AAOx3, cooperative HEENT: NCAT, MMM, EOMI Neck: no JVD Heart: S1S2 RRR Lungs: CTA B/l Abd: soft, NT, ND, bowel sounds normoactive Ext: moves all, no cyanosis, no clubbing, no edema, TTP on lateral aspect of RLE no erythema or skin changes noted Neuro: normal cognition, CN intact no focal deficits appreciated Psych: mood and affect congruent Discharge Plan Discharge Attending physician on discharge: Risa Mccoy Consulting providers: Casandra Goldstein ; José Miguel Salcedo ; Denny Chatman ; Edison Gates V. ;
== END 2022-02-12 17:05 | disposition home health service (06) | DRG 177 ==
LOC: ANHED 14:24 → ANH3MEDSUR 15:15
PROVIDERS: Nurse Practitioner; Admitting Provider Internal Medicine; Emergency Provider Emergency Medicine; PCP Nurse Practitioner Adult Health; Visit Provider Hospitalist
DX: U07.1 COVID-19 (principal); J12.82 Pneumonia due to coronavirus disease 2019; G91.2 (Idiopathic) normal pressure hydrocephalus; M79.604 Pain in right leg; M51.36 Other intervertebral disc degeneration, lumbar region; G89.29 Other chronic pain; R29.6 Repeated falls; Z96.651 Presence of right artificial knee joint; Z96.82 Presence of neurostimulator; Z90.710 Acquired absence of both cervix and uterus
CPT/HCPCS: 36415; 36600; 70450; 71045; 71250; 72132; 73590; 73630; 80048; 80053; 81003; 82550; 82805; 83036; 83615; 83735; 83880; 84443; 84484; 85025; 85380; 85610; 85730; 86140; 93005; 93971; 96374; 96375; 97110; 97161; 97165; 99285; A9270; C9803; J1100; J1650; J2405; J3010; J3360; Q9967; U0003; U0005

== ENCOUNTER 2022-02-19 16:39 | Emergency (ER) | payer MEDICARE, OTHER, SELFPAY ==
--- NOTE | ~2022-02-19 | XR_ITS ---
EXAM: XR hip RT 2V w AP pelvis DATE: 02/19/2022 18:12 HISTORY: right leg pain x 4 wks,radiates from knee to hip; no injury . COMPARISON: None available. FINDINGS: Decreased mineralization. Left-sided electronic stimulator with incompletely visualized le ads. Degenerative change in the lumbar spine, bilateral SI joints, left hip, and pubic symphysis. Sev ere degenerative change with axial narrowing in the right hip. IMPRESSION: No acute osseous finding in the right hip or pelvis. Reviewed, dictated and finalized at location K.
--- NOTE | ~2022-02-19 | XR_ITS ---
EXAM: XR ankle RT min 3V DATE: 02/19/2022 18:11 HISTORY: gen right ankle pain x 4 wks, no injury . COMPARISON: 02/11/2022. FINDINGS: Distal right fibular screw and plate fixation. Screw fixation of the medial malleolus. No hardware fracture or loosening. Old calcaneal fracture. Degenerative changes of the tibiotalar joint and midfoot. No osseous fracture. Achilles and plantar enthesopathy. IMPRESSION: No acute osseous finding in the right ankle. Reviewed, dictated and finalized at location K.
--- NOTE | ~2022-02-19 | XR_ITS ---
EXAM: XR knee RT 3V DATE: 02/19/2022 18:12 HISTORY: knee pain, medial Rt knee radiating to Rt hip; no injury . COMPARISON: None available. FINDINGS: Decreased mineralization. Right knee total arthroplasty, no hardware fracture or perihardw are lucency. Small right knee joint effusion. No osseous fracture. IMPRESSION: No acute finding in the right knee. Reviewed, dictated and finalized at location K.
[2022-02-19 16:49] VITALS: BP 125/64; PULSE 88; RESP 16; TEMP 36.2; O2SAT 97
[2022-02-19 17:09] VITALS: BP 123/70; PULSE 85; RESP 18; TEMP 36.8; O2SAT 96
--- NOTE | 2022-02-19 17:35 | ED.GENADULT ---
HPI - General Adult General Chief complaint: Extremity Injury, Lower Stated complaint: right leg pain Time Seen by Provider: 02/19/22 17:14 History of Present Illness HPI narrative: 36-year-old female history of chronic right lower extremity pain presents to the emergency department for complaint of acutely worsened right leg pain. Patient states that she does have follow-up with the pain clinic and did have a recent MRI. They state that they did have the patient's pain medication/gabapentin increased to 600 mg p.o. twice daily on monday. Patient states he did have a fall at approximately 3 AM this morning. Patient denies any acute pain secondary to the fall. Patient states that her chronic pain started bothering her approximately 11 AM. Patient took no other medications for pain control. Upon arrival emergency room patient states that she does have hip knee and ankle pain but that it is improved compared to this morning. Related Data Home Medications Medication Instructions Recorded Confirmed Adult Aspirin 325 mg BYMOUTH DAILY 02/09/22 02/09/22 gabapentin 300 mg capsule 300 mg BID 02/09/22 02/09/22 rosuvastatin 20 mg tablet 20 mg PO DAILY 02/09/22 02/09/22 valsartan 320 mg tablet 320 mg PO DAILY 02/09/22 02/09/22 Allergies Allergy/AdvReac Type Severity Reaction Status Date / Time No Known Allergies Allergy Mild Verified 02/19/22 17:14 Review of Systems Review of Systems: CONSTITUTIONAL: Denies fever, chills, or sweats. EYES: Denies visual changes, redness, or discharge. ENT: Denies rhinorrhea, congestion, sore throat, or otalgia. CARDIOVASCULAR: Denies chest pain, palpitations, or edema. RESPIRATORY: Denies cough or dyspnea. GASTROINTESTINAL: Denies abdominal pain, nausea, vomiting, or diarrhea. GENITOURINARY: Denies dysuria or hematuria. SKIN: Denies rash or itching. MUSCULOSKELETAL: Acute on chronic right leg pain NEUROLOGIC: Denies headache, numbness, or weakness. [facility] Surgical History Surgical History (Updated 02/09/22 @ 14:49 by Casandra Goldstein NP) H/O: hysterectomy History of appendectomy History of knee replacement, total Hx of cholecystectomy S/P ORIF (open reduction internal fixation) fracture both feet Status post ORIF of fracture of ankle Family History Family History Father Heart disease Sibling Heart disease Social History Social History (Updated 02/09/22 @ 16:14 by Casandra Goldstein NP) Social History: The patient's son lives with her. She has 5 children. She is and her son Torito Ramos is her durable power tax attorney. She is retired from working in a daycare. Code status full code Smoking status: Never smoker Alcohol intake: never Substance use: never Spiritual care concerns: No Exam Narrative: APPEARANCE: Well appearing, no pain, no distress, well-nourished. HEAD: normocephalic, atraumatic. EYES: PERRLA/EOMI, conjunctivae clear. NOSE: Normal no drainage NECK: Supple. No adenopathy, no masses. RESPIRATORY: Airway patent, respirations nonlabored. Clear to auscultation bilaterally, no rales, rhonchi, wheezing. CARDIOVASCULAR: Regular rate and rhythm without murmurs rubs or gallops. ABDOMINAL: Soft, nontender, nondistended, normal bowel sounds MUSCULOSKELETAL: Moves all extremities. No reproducible lower extremity tenderness but does report pain throughout the lower extremity. NEURO: Alert. Cranial nerves II through XII intact. Grossly intact SKIN: Warm, dry. Normal Color PSYCHIATRIC: Normal affect/mood. Course Course Emergency Course: Patient reports that her pain is improved. Patient was provided a [place] in the ED for pain control. Patient was advised to continue taking her gabapentin for pain control. Patient was also encouraged to have close follow-up with the pain clinic as scheduled. All questions and concerns were addressed. Patient was well-appearing at time of discharge. Vital Signs
[2022-02-19] MEDS: HYDROcodone/acetaminophen (*CRX) 5-325 MG TABLET 1 TAB PO (18:59)
[2022-02-19 19:28] VITALS: BP 105/60; PULSE 81; RESP 18; O2SAT 98
== END 2022-02-19 19:25 | disposition home or self-care (01) ==
PROVIDERS: Emergency Provider Emergency Medicine; PCP Nurse Practitioner Adult Health
DX: M79.604 Pain in right leg (principal); G89.29 Other chronic pain; Z96.651 Presence of right artificial knee joint; Z90.710 Acquired absence of both cervix and uterus; Z79.82 Long term (current) use of aspirin
CPT/HCPCS: 73502; 73562; 73610; 99199; 99284; A9270

== ENCOUNTER 2023-05-30 10:58 | Outpatient (CLI) | payer MEDICARE, OTHER, SELFPAY ==
[2023-05-30 11:52] LABS: Basophils Absolute Auto 0.1 K/mm3 (0.0-0.1); Basophils Percent Auto 0.8 % (0.2-1.2); Eosinophils Absolute Auto 0.4 K/mm3 (0-0.3); Eosinophils Percent Auto 4.7 % (0-4.4); Hematocrit 39.1 % (37.0-47.0); Hemoglobin 12.2 g/dL (12.0-15.0); Immature Granulocyte Absolute 0.03 K/mm3 (0.00-0.031); Immature Granulocyte Percent A 0.4 % (0-0.5); Lymphocytes Absolute Auto 1.56 K/mm3 (0.9-3.2); Lymphocytes Percent Auto 18.6 % (18.3-44.2); Mean Corpuscular HGB Conc 31.2 g/dl (32-36); Mean Corpuscular Hemoglobin 30.4 pg (26-34); Mean Corpuscular Volume 97.5 fl (80-100); Mean Platelet Volume 10.1 fl (7.4-10.4); Monocytes Absolute Auto 0.9 K/mm3 (0.1-0.6); Monocytes Percent Auto 10.3 % (2.6-8.5); Neutrophils Absolute Auto 5.5 K/mm3 (1.3-6.7); Neutrophils Percent Auto 65.2 % (45.5-73.1); Platelet Count Result 343 k/mm3 (150-375); Red Blood Count 4.01 M/mm3 (4.2-5.4); Red Cell Distribution Width 12.4 % (11.5-14.5); White Blood Count 8.4 K/mm3 (4.5-10.0)
[2023-05-30 12:14] LABS: Alanine Aminotransferase 11 U/L (6-35); Albumin Level 4.2 g/dL (3.5-5.1); Alkaline Phosphatase 74 U/L (38-126); Anion Gap 9 mmol/L (8-16); Aspartate Amino Transferase 20 U/L (14-36); Bilirubin,Total 0.5 mg/dL (0.2-1.3); Blood Urea Nitrogen 23 mg/dL (7-17); Calcium 9.2 mg/dL (8.4-10.2); Carbon Dioxide 28 mmol/L (22-30); Chloride 102 mmol/L (98-107); Cholesterol 195 mg/dL (0-200); Estimated Glomerular Filt Rate 52; Glucose 94 mg/dL (65-110); HDL Direct 43 mg/dL; Sodium 139 mmol/L (137-145); Triglycerides 152 mg/dL (<150)
[2023-05-30 12:24] LABS: LDL Cholesterol Direct 98 mg/dL
[2023-05-30 12:50] LABS: Vitamin D 25 Hydroxy 20.4 ng/mL
== END 2023-05-30 10:59 | disposition home or self-care (01) ==
PROVIDERS: PCP Internal Medicine; Visit Provider Clinical Nurse Specialist
DX: E55.9 Vitamin D deficiency, unspecified (principal); R54 Age-related physical debility; Z13.228 Encounter for screening for other metabolic disorders; I10 Essential (primary) hypertension
CPT/HCPCS: 36415; 80053; 80061; 82306; 85025

== ENCOUNTER 2023-10-12 15:20 | Emergency (ER) | payer MEDICARE, OTHER, SELFPAY ==
[2023-10-12] VITALS (8 sets, daily range): BP systolic 107–131; BP diastolic 53–72; PULSE 61–75; RESP 15–24; TEMP 36.7–36.8; O2SAT 95–100
--- NOTE | 2023-10-12 15:39 | ECG_ITS ---
SEE SCANNED COPY FOR CONFIRMED REPORT MTDD
[2023-10-12 15:48] LABS: Basophils Absolute Auto 0.1 K/mm3 (0.0-0.1); Basophils Percent Auto 1.2 % (0.2-1.2); Eosinophils Absolute Auto 0.4 K/mm3 (0-0.3); Eosinophils Percent Auto 5.7 % (0-4.4); Hematocrit 38.4 % (37.0-47.0); Hemoglobin 12.4 g/dL (12.0-15.0); Immature Granulocyte Absolute 0.02 K/mm3 (0.00-0.031); Immature Granulocyte Percent A 0.3 % (0-0.5); Lymphocytes Absolute Auto 1.66 K/mm3 (0.9-3.2); Mean Corpuscular HGB Conc 32.3 g/dl (32-36); Monocytes Absolute Auto 0.7 K/mm3 (0.1-0.6); Monocytes Percent Auto 10.1 % (2.6-8.5); Neutrophils Absolute Auto 3.8 K/mm3 (1.3-6.7); Neutrophils Percent Auto 57.7 % (45.5-73.1); Platelet Count Result 291 k/mm3 (150-375); Red Cell Distribution Width 12.5 % (11.5-14.5); White Blood Count 6.6 K/mm3 (4.5-10.0)
[2023-10-12 16:00] LABS: Partial Thromboplastin Time 27.1 Seconds (22.3-36.8); Prothrombin Time 13.3 Seconds (11.1-14.7)
[2023-10-12 16:17] LABS: Alanine Aminotransferase 11 U/L (6-35); Albumin Level 4.1 g/dL (3.5-5.1); Alkaline Phosphatase 80 U/L (38-126); Anion Gap 4 mmol/L (4-12); Aspartate Amino Transferase 18 U/L (14-36); Bilirubin,Total 0.6 mg/dL (0.2-1.3); Blood Urea Nitrogen 18 mg/dL (7-17); Calcium 9.3 mg/dL (8.4-10.2); Carbon Dioxide 26 mmol/L (22-30); Chloride 106 mmol/L (98-107); Estimated Glomerular Filt Rate 59; Glucose 98 mg/dL (65-110); Potassium 3.9 mmol/L (3.4-5.0); Sodium 136 mmol/L (137-145)
[2023-10-12 16:29] LABS: Appearance Urine Clear (Clear); Bilirubin Urine Negative (Negative); Blood Urine Negative (Negative); Color Urine Yellow (Yellow); Glucose Urine UA Negative (Negative); Ketones Urine Negative (Negative); Leukocyte Esterase Ur Negative LEU/UL (Negative); Nitrate Urine Negative (Negative); Protein Urine Negative (Negative); Specific Grav Ur 1.016 (1.001-1.035); pH Urine 5.5 (5.0-9.0)
[2023-10-12 16:33] LABS: Add Urine Microscopic? NO
--- NOTE | 2023-10-12 17:29 | ED.GENADULT ---
HPI - General Adult General Chief complaint: Unspecified Stated complaint: doesn't feel good trouble walking Time Seen by Provider: 10/12/23 15:27 History of Present Illness HPI narrative: Patient is an 87-year-old female who presents ER with reports of feeling weak. Reports that it has been going on for awhile. she is oriented to self and place. She cannot provide the year or the month. There is no family here at this time. No reports of trauma or infection. Related Data Home Medications Medication Instructions Recorded Confirmed rosuvastatin 20 mg tablet 20 mg PO DAILY 02/09/22 03/21/23 cholecalciferol (vitamin D3) 25 25 mcg PO DAILY 09/09/22 03/21/23 mcg (1,000 unit) capsule diclofenac sodium 75 mg 75 mg PO BID 09/09/22 03/21/23 tablet,delayed release losartan 100 mg tablet 100 mg PO DAILY 09/09/22 03/21/23 Allergies Allergy/AdvReac Type Severity Reaction Status Date / Time No Known Allergies Allergy Mild Verified 03/20/23 14:58 Review of Systems Review of Systems: ROS unobtainable: Yes unobtainable due to mental status [facility] Past Medical History Medical History (Updated 10/12/23 @ 20:33 by Donny Higgins MD) Arthritis Dementia Elevated d-dimer GERD (gastroesophageal reflux disease) Hyperlipidemia Hypertension Osteoporosis Pneumonia due to COVID-19 virus Surgical History Surgical History H/O: hysterectomy History of appendectomy History of knee replacement, total Hx of cholecystectomy S/P ORIF (open reduction internal fixation) fracture both feet Status post ORIF of fracture of ankle Family History Family History Father Heart disease Sibling Heart disease Social History Social History Social History: The patient's son lives with her. She has 5 children. She is and her son Torito Ramos is her durable power plastics factory worker. She is retired from working in a daycare. Code status full code Smoking status: Never smoker Alcohol intake: never Substance use: never Lack of Transportation: No Lack of Food: Never True Current Housing: I Have Housing Concerned About Future Housing: No Difficulty Paying Gas/Electric Bills: No Difficulty Paying for Meds: No Currently Unemployed: No Education: High School Diploma/GED Spiritual care concerns: No Exam Narrative: GENERAL: Well-appearing, well-nourished, and in no acute distress. HEAD: Normocephalic, atraumatic. ENT: Mucous membranes moist. NECK: Supple. CHEST: Clear to auscultation. No respiratory distress. HEART: Regular rate and rhythm. 3/5 murmur all thomson. Normal peripheral pulses. ABDOMEN: Soft, nontender, nondistended, normal active bowel sounds. EXTREMITIES: Normal range of motion. No edema. SKIN: Warm, dry, no rash. NEURO: Alert and oriented x3. PSYCH: Normal mood and affect. Course Course Emergency Course: Patient seems to have worsening dementia. Discussed this with her son. He feels comfortable helping care for her at home with his siblings. There is 1 sibling that lives with her. That an appointment to see her PCP in the next week. I have discussed placement in a memory care with him and they are not ready at this time. Vital Signs Vital signs: Vital Signs Temperature 98.1 F 10/12/23 15:24 Pulse Rate 75 10/12/23 15:24 Respiratory Rate 18 10/12/23 15:24 Blood Pressure 131/72 10/12/23 15:24 Pulse Oximetry 97 10/12/23 15:24 Oxygen Delivery Room Air 10/12/23 15:24 Temperature 98.1 F 10/12/23 15:24 Pulse Rate 70 10/12/23 20:13 Respiratory Rate 18 10/12/23 20:13 Blood Pressure 129/63 10/12/23 20:13 Pulse Oximetry 98 10/12/23 20:13 Oxygen Delivery Room Air 10/12/23 15:24 Medical Decision Making Vital Signs Vital Signs: Vital Signs
[2023-10-12] MEDS: SODIUM CHLORIDE 0.9% IV 500 ML 999 ML IV CONT (17:51)
== END 2023-10-12 21:00 | disposition home or self-care (01) ==
PROVIDERS: Emergency Provider Emergency Medicine; PCP Nurse Practitioner Adult Health
DX: F03.90 Unspecified dementia, unspecified severity, without behavioral disturbance, psychotic disturbance, mood disturbance, and anxiety (principal); I10 Essential (primary) hypertension; E78.5 Hyperlipidemia, unspecified; K21.9 Gastro-esophageal reflux disease without esophagitis; M19.90 Unspecified osteoarthritis, unspecified site; M81.0 Age-related osteoporosis without current pathological fracture; Z96.659 Presence of unspecified artificial knee joint; Z87.01 Personal history of pneumonia (recurrent); Z86.16 Personal history of COVID-19; Z90.710 Acquired absence of both cervix and uterus; Z90.49 Acquired absence of other specified parts of digestive tract; R94.31 Abnormal electrocardiogram [ECG] [EKG]
CPT/HCPCS: 36415; 80053; 81003; 84443; 85025; 85610; 85730; 93005; 96360; 99284; J7040

== ENCOUNTER 2023-10-30 11:41 | Outpatient (CLI) | payer MEDICARE, OTHER, SELFPAY ==
[2023-10-30 18:25] LABS: Basophils Absolute Auto 0.1 K/mm3 (0.0-0.1); Basophils Percent Auto 1.2 % (0.2-1.2); Eosinophils Absolute Auto 0.3 K/mm3 (0-0.3); Eosinophils Percent Auto 4.5 % (0-4.4); Hematocrit 42.4 % (37.0-47.0); Hemoglobin 12.8 g/dL (12.0-15.0); Immature Granulocyte Absolute 0.02 K/mm3 (0.00-0.031); Immature Granulocyte Percent A 0.3 % (0-0.5); Lymphocytes Absolute Auto 1.54 K/mm3 (0.9-3.2); Lymphocytes Percent Auto 22.2 % (18.3-44.2); Mean Corpuscular HGB Conc 30.2 g/dl (32-36); Mean Corpuscular Volume 99.5 fl (80-100); Mean Platelet Volume 11.2 fl (7.4-10.4); Monocytes Absolute Auto 0.6 K/mm3 (0.1-0.6); Monocytes Percent Auto 9.1 % (2.6-8.5); Neutrophils Absolute Auto 4.4 K/mm3 (1.3-6.7); Neutrophils Percent Auto 62.7 % (45.5-73.1); Platelet Count Result 333 k/mm3 (150-375); Red Blood Count 4.26 M/mm3 (4.2-5.4); White Blood Count 6.9 K/mm3 (4.5-10.0)
[2023-10-30 19:29] LABS: Alanine Aminotransferase 10 U/L (6-35); Albumin Level 4.2 g/dL (3.5-5.1); Alkaline Phosphatase 71 U/L (38-126); Anion Gap 6 mmol/L (4-12); Aspartate Amino Transferase 50 U/L (14-36); Bilirubin,Total 0.7 mg/dL (0.2-1.3); Blood Urea Nitrogen 19 mg/dL (7-17); Calcium 9.6 mg/dL (8.4-10.2); Carbon Dioxide 24 mmol/L (22-30); Chloride 108 mmol/L (98-107); Cholesterol 205 mg/dL (0-200); Estimated Glomerular Filt Rate 52; Glucose 83 mg/dL (65-110); HDL Direct 43 mg/dL; Magnesium 2.1 mg/dL (1.6-2.3); Potassium 4.1 mmol/L (3.4-5.0); Sodium 138 mmol/L (137-145); Triglycerides 196 mg/dL (<150)
[2023-10-30 19:40] LABS: LDL Cholesterol Direct 115 mg/dL
== END 2023-10-30 11:42 | disposition home or self-care (01) ==
LOC: ANHBWCLAB 11:44
PROVIDERS: PCP Nurse Practitioner Adult Health; Visit Provider Nurse Practitioner Adult Health
DX: E55.9 Vitamin D deficiency, unspecified (principal); I10 Essential (primary) hypertension
CPT/HCPCS: 36415; 80053; 80061; 82306; 83735; 84443; 85025

== ENCOUNTER 2024-04-08 12:01 | Outpatient (CLI) | payer MEDICARE, OTHER, SELFPAY ==
[2024-04-08 18:43] LABS: Alanine Aminotransferase 10 U/L (6-35); Albumin Level 4.1 g/dL (3.5-5.1); Alkaline Phosphatase 73 U/L (38-126); Anion Gap 6 mmol/L (4-12); Aspartate Amino Transferase 37 U/L (14-36); Bilirubin,Total 0.5 mg/dL (0.2-1.3); Blood Urea Nitrogen 23 mg/dL (7-17); Calcium 9.3 mg/dL (8.4-10.2); Carbon Dioxide 29 mmol/L (22-30); Chloride 103 mmol/L (98-107); Estimated Glomerular Filt Rate 52; Glucose 89 mg/dL (65-110); Sodium 138 mmol/L (137-145)
== END 2024-04-08 12:02 | disposition home or self-care (01) ==
LOC: ANHBWCLAB 12:03
PROVIDERS: PCP Nurse Practitioner Adult Health; Visit Provider Nurse Practitioner Adult Health
DX: I10 Essential (primary) hypertension (principal)
CPT/HCPCS: 36415; 80053

== ENCOUNTER 2024-10-02 10:18 | Outpatient (CLI) | payer MEDICARE, OTHER, SELFPAY ==
--- OUTSIDE RECORDS SUMMARY | 2024-10-02 11:41 | XMS_ITS | Continuity of Care Document ---
Author Organization [facility] Address [address] [place] [address] Phone Care Team Providers Care Medical Planner Name Role Phone Delfino Rodriguez Unavailable Unavailable Procedures Procedure Date Office/outpatient Visit, Est Eye Exam & Treatment No Script Refraction Eye Exam & Treatment No Script Office/outpatient Visit, Est BF Plastic Sphcyl [place] To +/-4d .12-2d Vision Svcs Frames Purchases Tint Photochromatic, Plastic Frames Deluxe Refraction Post-op Follow-up Visit Post-op Follow-up Visit Remove Cataract, Insert Lens Eye Exam Established Pt Advance Directives Directive Yes / No Effective Date File Name No Information Encounters Encounter Description Practice Location Reason(s) For Visit Diagnoses Date Provider Providers Copied on Encounter Office/outpat ient Visit, Est [facility], [address], [place], [place], [id number], [place] tel:[phone] SEC [facility] No Information 3-201 0 Jennifer Saleh. [address] , [address], [place], [address], [place]. tel:[phone] [facility], [address], [place], [place], [address], [place] tel:[phone] [facility] No Information Gustavo-0 4-201 0 Jennifer Saleh. [facility] , [address], [place], [address], [place]. tel:[phone] [facility], [address], [place], [place], [address], [place] tel:[phone] [facility] No Information May-0 6-200 9 Jennifer Saleh. [address] [place], [place] [address]ate Counsel[address] , [address], [place], [address], [place]. tel:[phone] Office/outpat ient Visit, [facility], [address] [place] [address] [address], [place], [place], [address], [place] tel:[phone] SEC [facility] No Information Mar-0 3-200 8 Jennifer Saleh. [address] [place], [place] [address]ate Center , [address], [place], [address], [place]. tel:[phone] [facility], [address] [place] [address] [address], [place], [place], [address], [place] tel:[phone] SEC [facility] No Information Mar-0 9-200 7 [facility] . [address] [facility], [address], [place], [place], [address], [place]. tel:[phone] Referring Provider: Delfino Rizo, [address] [place], [place] [address]ate [address], [place], [address]. tel:[phone] sulting Provider: Danyelle Ortiz, [address] [place], [address]. tel:[phone] [facility], [address] [place] [address] [address], [place], [place], [address], [place] tel:[phone] SEC [facility] No Information Aug- 9-200 7 Jennifer Saleh. [address] [place], [place] [address]ate Center , [address], [place], [address], . tel:[phone] [facility], [address] [place] [address] [address], [place], [place], [id number], tel:[phone] SEC [facility] No Information Aug-0 2-200 7 Doisy Edward. [address] , [address], [place], [place], [facility], . tel:[phone] [facility], [address] [place] [address] [address], [place], [place], [address], [place] tel:[phone] [facility] No Information b-0 1-200 7 Doisy Edward. [address] , [address], [place], [place], [facility], . tel:[phone] [facility], [address] [place] [address] [address], [place], [place], [address], tel:[phone] SEC [facility] No Information 9200 7 Doisy Edward. [address] , [address], [place], [place], [facility], . tel:[phone] Family History Family Member Type Diagnosis Age At Onset No Information Payers Payer name Insurance type Covered alliance party ID Authorrachaela omar(s) Medicare [facility] [id number] Social History Type Description Quantity Date Captured Comments Sex Female Smoking Status No Information Chief Complaint And Reason For Visit No Information Reason For Referral Reason For Referral No Information History Of Present Illness Encounter Date Complaint History Of Prese nt Illness No Information Functional Status Date Functional Assessmen t No Information Instructions Date Instruction Additional Infor mation No Information Assessments Type Assessment Date No Information Patient Care Teams Name Effective Dates (start - stop) Status Members No Information
--- OUTSIDE RECORDS SUMMARY | 2024-10-02 11:41 | XMS_ITS | CONTINUITY OF CARE DOCUMENT ---
Author Name haritha mg Address Unknown Organization [facility] Address [address] [place] [address] Phone [phone] Care Team Providers Care Pressroom Worker Name Role Phone Jose Guadalupe FREDERICK, Noe Unavailable [phone] TAVON FREDERICK, NEFTALI Unavailable [phone] GENNARO FREDERICK, JEFFERSON Alvarado Unavailable [phone] INSURANCE PROVIDERS Payer name Policy type / Coverage type [place] red green party ID [employer] Commercial insurance company [id number] [place] [employer] Medicare [id number]
--- OUTSIDE RECORDS SUMMARY | 2024-10-02 11:41 | XMS_ITS | Clinical Summary ---
Author Organization [facility] Address [address] [place] [address] Care Team Providers Care Composite Science Teacher Name Role Phone Unavailable Primary Care Provider Unavailabl e Social History Tobacco Use Types Packs/Day Years Used Date Smoking Tobacco: Never Assessed Comments Unknown Sex and Gender Information Value Date Recorded Sex Assigned at Not on file Legal Sex Female 8:30 PM CDT Gender Identity Not on file Sexual Orientation Not on file Plan of Treatment Health Maintenance Due Date Last Done Comments DTaP, Tdap and Td Vaccines ( 1 - Tdap) 1954 Zoster Vaccines (1 of 2) 1984 Pneumococcal Vaccine: 65+ Ye ars (1 of 1 - PCV) 11/21/1999 RSV Immunization or 60+ Years (1 - 1-dose 75+ series) 2009 COVID-19 Vaccine (2023-2 5 season) 2024 Influenza Adult (#1) 2024 Meningococcal B Vaccine Aged Out No l onger eligible based on patient's age to complete this topic Meningococcal Vaccine Aged Out No nisreen marco a eligible based on patient's age to complete this topic RSV Immunizations Under 20 Months Aged Out No longer eligible based on patient's age to complete this topic
[2024-10-02 20:02] LABS: Add Urine Microscopic? YES; Appearance Urine Clear (Clear); Bacteria Urine None Seen /hpf; Bilirubin Urine Negative (Negative); Blood Urine Negative (Negative); Color Urine Yellow (Yellow); Glucose Urine UA Negative (Negative); Ketones Urine Negative (Negative); Leukocyte Esterase Ur Trace LEU/UL (Negative); Nitrate Urine Negative (Negative); Protein Urine Negative (Negative); RBC Urine 0-2 /hpf (0-2); Specific Grav Ur 1.014 (1.001-1.035); Squamous Epithelial Cell Urine Few /hpf (Few); WBC Urine 0-5 /hpf (0-3); pH Urine 5.5 (5.0-9.0)
[2024-10-02 20:11] LABS: Alanine Aminotransferase 10 U/L (6-35); Alkaline Phosphatase 92 U/L (38-126); Anion Gap 10 mmol/L (4-12); Aspartate Amino Transferase 40 U/L (14-36); Bilirubin,Total 0.4 mg/dL (0.2-1.3); Blood Urea Nitrogen 21 mg/dL (7-17); Calcium 9.3 mg/dL (8.4-10.2); Carbon Dioxide 26 mmol/L (22-30); Chloride 102 mmol/L (98-107); Estimated Glomerular Filt Rate 51; Glucose 97 mg/dL (65-110); Potassium 5.2 mmol/L (3.4-5.0); Sodium 138 mmol/L (137-145)
== END 2024-10-02 10:19 | disposition home or self-care (01) ==
PROVIDERS: PCP Nurse Practitioner Adult Health; Visit Provider Nurse Practitioner Adult Health
DX: I10 Essential (primary) hypertension (principal); R53.83 Other fatigue
CPT/HCPCS: 36415; 80053; 81001; 87086